=== PATIENT | female | born 1960 | race Caucasian/White ===

== ENCOUNTER 2016-07-16 14:49 | Observation (INO) ==
--- NOTE | 2016-07-16 15:06 | Emergency Department Note ---
Disposition Clinical Impression: Chest pain Qualifiers: Chest pain type: unspecified Qualified Code(s): R07.9 - Chest pain, unspecified Disposition: Admitted As Inpatient Condition: Fair Referrals: Jovani Garcia DO [Primary Care Provider] - Forms: ED Satisfaction Letter Time of Disposition: 16:46 Chest Pain HPI - General Chief Complaint: ED Chest Pain Stated Complaint: chest pain Time Seen by Provider: 07/16/16 15:00 Source: patient, family Limitations: no limitations Vital Signs Reviewed: Yes Nursing Notes Reviewed: Yes - History of Present Illness HPI Narrative: 56-year-old who comes in complaining of chest pain. Patient states she had a episode of chest pain about 2 weeks ago. Today she was at work sitting at her desk and developed chest pain pain lasted about 30-40 minutes. Described as midsternal with a tight heaviness in her chest. Patient denies a history of heart problems she's not had any recent cardiac workup. Risk factors include hypertension and family history. 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 Acidophilus/Pectin, [place] 1 each PO DAILY 07/16/16 07/16/16 [Acidophilus Probiotic Capsule] Levothyroxine [Synthroid] 75 mcg PO 0630 07/16/16 07/16/16 Losartan/HCTZ [Hyzaar 50-12.5 1 each PO DAILY 07/16/16 07/16/16 Tablet] Omeprazole [PriLOSEC] 20 mg PO DAILY 07/16/16 07/16/16 Allergies Allergy/AdvReac Type Severity Reaction Status Date / Time acetaminophen [From Percocet] Allergy Rash Verified 07/16/16 14:59 cefpodoxime [From Vantin] Allergy Rash Verified 07/16/16 14:59 doxycycline Allergy Rash Verified 07/16/16 14:59 naproxen Allergy Unresponsiv Verified 07/16/16 14:59 e nitrofurantoin Allergy Rash Verified 07/16/16 14:59 [From Macrobid] Oxycodone [From Percocet] Allergy Rash Verified 07/16/16 14:59 Penicillins Allergy Rash Verified 07/16/16 14:59 Sulfa (Sulfonamide Allergy Rash Verified 07/16/16 14:59 Antibiotics) sulfamethoxazole Allergy Rash Verified 07/16/16 14:59 [From Bactrim] trimethoprim [From Bactrim] Allergy Rash Verified 07/16/16 14:59 Constitutional: Denies: fever, chills, weakness, weight change Eyes: Denies: eye pain, eye discharge, vision change ENT ED: Denies: ear pain, throat pain, dental pain, hearing loss, epistaxis, congestion, dysphagia Cardiovascular: Reports: chest pain. Denies: palpitations, dyspnea on exertion , edema, syncope Respiratory: Denies: cough, dyspnea, wheezes, hemoptysis, stridor Gastrointestinal: Denies: abdominal pain, nausea, vomiting, diarrhea, constipation, hematemesis, melena, hematochezia Genitourinary: Denies: dysuria, frequency, hematuria, discharge Musculoskeletal: Denies: back pain, neck pain, arthralgia, myalgia Integumentary: Denies: rash, abrasion, lesions Neurological: Denies: headache, weakness, numbness, paresthesias, confusion, abnormal gait, vertigo Psychiatric: Denies: anxiety, depression, suicidal thoughts, homicidal thoughts , auditory hallucinations, visual hallucinations Endocrine: Denies: fatigue Hematological/Lymphatic: Denies: easy bleeding, easy bruising Allergic/Immunologic: Denies: facial swelling, urticaria Chest Pain PMH - Past Medical History Medical history: Reports: GERD, hypertension, thyroid disease Psychiatric history: Reports: no psych history - Social History Smoking Status: Never smoker Alcohol use: Reports: occasionally Drug use: Reports: none Physical Exam - General Limitations: no limitations General appearance: alert, in no apparent distress - Head Head exam: atraumatic, normocephalic, normal inspection - Eye Eye exam: Present: normal appearance, PERRL, EOMI - ENT ENT exam: normal exam, normal oropharynx, mucous membranes moist - Neck Neck exam: Present: normal inspection, full ROM, trachea midline - Chest Chest inspection: Present: normal inspection, symmetric chest wall rise - Respiratory Respiratory exam: Present: normal lung sounds bilaterally - Cardiovascular Cardiovascular exam: Present: regular rate, normal rhythm, normal heart sounds - Abdominal Exam Abdominal exam: Present: soft, Non-Tender. Absent: tenderness, distention, guarding, rebound, rigidity - Extremities Exam Extremities exam: Present: normal inspection, full ROM. Absent: tenderness, pedal edema - Expanded Lower Extremity Exam Neurovascular/Tendon exam: Absent: motor deficit, sensory deficit, tendon deficit Gait: observed and normal - Back Exam Back exam: Present: normal inspection, full ROM. Absent: tenderness - Neurological Exam Neurological exam: Present: alert, oriented X3 - Psychiatric Psychiatric exam: Present: normal affect, normal mood - Skin Skin exam: Present: warm, dry, intact, normal color Course - Reevaluation(s) Reevaluation #1: Patient with multiple risk factors comes in complaining of tightness in her chest lasting for about 20-30 minutes today had an episode a few weeks ago also. Had no recent cardiac workup. Time: 16:44 - Consultations Consultation #1: Discussed with , admit. Time: 16:45 Vital Signs Temperature 97.3 F L 07/16/16 14:50 Pulse Rate 90 07/16/16 14:50 Respiratory Rate 18 07/16/16 14:50 Blood Pressure 167/84 07/16/16 14:50 O2 Sat by Pulse Oximetry 97 07/16/16 14:50 Temperature 97.3 F L 07/16/16 14:50 Pulse Rate 90 07/16/16 14:50 Respiratory Rate 18 07/16/16 14:50 Blood Pressure 167/84 07/16/16 14:50 O2 Sat by Pulse Oximetry 97 07/16/16 15:11 Oxygen Delivery Oxygen Delivery Room Air Chest Pain - Lab Data Lab results reviewed: Yes I reviewed the patient's lab results. Result diagrams: 07/16/16 15:51 07/16/16 15:51 Lab Results 07/16/16 07/16/16 07/16/16 Range/Units 15:51 15:51 15:51 WBC 6.5 (4.3-11.1) K/mcL RBC 4.52 (3.82-4.97) M/mcL Hgb 13.6 (11.5-15.4) g/dL Hct 40.3 (35.3-44.9) % MCV 89.2 (83.0-100.0) fL MCH 30.1 (28.0-33.3) pg MCHC 33.7 (31.6-35.5) g/dL RDW 13.2 (11.5-14.5) % Plt Count 225 (140-400) K/mcL MPV 9.5 (9.4-12.4) fL Immature Gran % 0.5 (0-4) % Seg Neutrophils % 52.8 % Lymphocytes % 34.3 % Monocytes % 6.9 % Eosinophils % 4.7 % Basophils % 0.8 % Neutrophils # 3.5 (1.6-8.9) K/mcL Lymphocytes # 2.2 (0.6-4.6) K/mcL Monocytes # 0.5 (0.0-1.3) K/mcL Eosinophils # 0.3 (0.0-0.6) K/mcL Basophils # 0.1 (0.0-0.2) K/mcL PT 11.3 (9.4-12.1) Seconds INR 1.0 APTT 36.1 H (26.0-36.0) Seconds Sodium (136-145) mEq/L Potassium (3.5-4.5) mEq/L Chloride (98-109) mEq/L Carbon Dioxide (19-29) mEq/L BUN (7-20) mg/dL Creatinine (0.57-1.11) mg/dL Est GFR ( Amer) (> 60) Est GFR (Non-Af Amer) (> 60) BUN/Creatinine Ratio (6-26) Glucose (70-99) mg/dL Calculated Osmolality (280-300) Calcium (8.6-10.8) mg/dL Troponin I (0-0.03) ng/mL B-Natriuretic Peptide < 10 (0-100) pg/mL 07/16/16 07/16/16 Range/Units 15:51 15:51 WBC (4.3-11.1) K/mcL RBC (3.82-4.97) M/mcL Hgb (11.5-15.4) g/dL Hct (35.3-44.9) % MCV (83.0-100.0) fL MCH (28.0-33.3) pg MCHC (31.6-35.5) g/dL RDW (11.5-14.5) % Plt Count (140-400) K/mcL MPV (9.4-12.4) fL Immature Gran % (0-4) % Seg Neutrophils % % Lymphocytes % % Monocytes % % Eosinophils % % Basophils % % Neutrophils # (1.6-8.9) K/mcL Lymphocytes # (0.6-4.6) K/mcL Monocytes # (0.0-1.3) K/mcL Eosinophils # (0.0-0.6) K/mcL Basophils # (0.0-0.2) K/mcL PT (9.4-12.1) Seconds INR APTT (26.0-36.0) Seconds Sodium 142 (136-145) mEq/L Potassium 4.0 (3.5-4.5) mEq/L Chloride 106 (98-109) mEq/L Carbon Dioxide 27 (19-29) mEq/L BUN 9 (7-20) mg/dL Creatinine 0.80 (0.57-1.11) mg/dL Est GFR ( Amer) > 60 (> 60) Est GFR (Non-Af Amer) > 60 (> 60) BUN/Creatinine Ratio 11 (6-26) Glucose 129 H (70-99) mg/dL Calculated Osmolality 294 (280-300) Calcium 10.2 (8.6-10.8) mg/dL Troponin I 0.00 (0-0.03) ng/mL B-Natriuretic Peptide (0-100) pg/mL - Radiology Data Radiology results reviewed: Yes I reviewed the patient's radiology results. Chest X-Ray 07/16/16 15:00 IMPRESSION: 1. No acute cardiopulmonary disease. D/ / Hodan Quiñonez MD / Hodan Quiñonez MD Interpreting Provider: Hodan Quiñonez MD - EKG Data EKG attestation: Yes I reviewed and interpreted this EKG. EKG shows normal: sinus rhythm Rate: normal Rhythm: NSR Interpretation: no acute changes Heart Score - Score History: Moderately Suspicious EKG: Non Specific repolarisation Disturbance Age: 45-65 Risk Factors: 1-2 risk factors Troponin: Less than normal limit HEART Score Total: 4
[2016-07-16] MEDS ORDERED: Aspirin 81 MG TAB.CHEW PO STA (15:07)
[2016-07-16 16:00] LABS: Basophils # 0.1 K/mcL (0.0-0.2); Basophils % 0.8 %; Eosinophils # 0.3 K/mcL (0.0-0.6); Eosinophils % 4.7 %; Hematocrit 40.3 % (35.3-44.9); Hemoglobin 13.6 g/dL (11.5-15.4); Immature Granulocytes % 0.5 % (0-4); Lymphocytes # 2.2 K/mcL (0.6-4.6); Lymphocytes % 34.3 %; Mean Corpuscular HGB Conc 33.7 g/dL (31.6-35.5); Mean Corpuscular Hemoglobin 30.1 pg (28.0-33.3); Mean Corpuscular Volume 89.2 fL (83.0-100.0); Mean Platelet Volume 9.5 fL (9.4-12.4); Monocytes # 0.5 K/mcL (0.0-1.3); Monocytes % 6.9 %; Neutrophils # 3.5 K/mcL (1.6-8.9); Platelet Count 225 K/mcL (140-400); Red Blood Count 4.52 M/mcL (3.82-4.97); Red Cell Distribution Width 13.2 % (11.5-14.5); Segmented Neutrophils % 52.8 %
[2016-07-16 16:07] LABS: Prothrombin Time 11.3 Seconds (9.4-12.1)
[2016-07-16 16:10] LABS: Activated Partial Thrombo Time 36.1 Seconds (26.0-36.0)
[2016-07-16 16:13] LABS: BUN/Creatinine Ratio 11 (6-26); Blood Urea Nitrogen 9 mg/dL (7-20); Calcium 10.2 mg/dL (8.6-10.8); Carbon Dioxide 27 mEq/L (19-29); Chloride 106 mEq/L (98-109); Glucose 129 mg/dL (70-99); Osmolality,Calculated 294 (280-300); Sodium 142 mEq/L (136-145); eGFR For African Americans > 60 (> 60); eGFR For Non-African Americans > 60 (> 60)
[2016-07-16] MEDS ORDERED: Naloxone 0.4 MG/ML INJ IVP PRN (18:10)
[2016-07-16] MEDS ORDERED: *HR* Morphine 2 MG/ML SYRINGE IVP PRN (18:10)
--- NOTE | 2016-07-16 18:20 | Internal Med History&Physical ---
Date of Encounter: 07/16/16 Time of Encounter: 18:16 Assessment and Plan (1) Chest pain Status: Acute Chest pain: Admitted as observation. - cardiac diet. -ASA/BB/Statin - Echocardiogram -Pain control with morphine -We will resume home medication -If echocardiogram is normal then please consider stress test -If echocardiogram is abnormal and his consider cardiology evaluation -Family at bedside. Above plan discussed with the family. -Family verbalize understanding. Family agreed with the above plan. Qualifiers: Chest pain type: unspecified Qualified Code(s): R07.9 - Chest pain, unspecified (2) Hypertension Status: Acute Presently blood pressure is usually well controlled. We will resume the home medications. Qualifiers: Hypertension type: essential hypertension Qualified Code(s): I10 - Essential (primary) hypertension (3) DVT prophylaxis Status: Acute Heparin Medical decision making : this patient has a mild to moderate discomfort worsening cardiac issue in spite of being on appropriate medication Internal Medicine - H&P: HPI Chief complaint: chest pain Admitted From: Emergency Dept Plans for Post Hospital Care: Home History of present illness: PCP: Dr Jose Santos PMH: GERD, hypertension, thyroid disease HPI: Patient has ongoing chest discomfort for more than 2 weeks. It was noted that in the last 48 hours chest pain got worse. Since this morning patient was having continuous, nonradiating, localized, dull aching-sharp, retrosternal chest pain. Pain was getting worse upon respiration. The pain was relieved at rest. Patient has noted that in last 2 weeks her work capacity has significantly deteriorated and she is easily getting fatigued upon minimal exertion. Patient denies palpitation, short of breath, nausea, vomiting, abdominal pain or diarrhea. Her persistent chest pain brought in patient to the emergency department for further evaluation. Workup in the emergency room: Patient underwent basic laboratory workup, chest x -ray, EKG. Are examined this patient in the emergency room. Patient's family is at bedside. Reason for admission: Chest pain to rule out acute coronary syndrome. Family history: Noncontributory Past Med Surg Social Fam HX - Past Medical History Medical history: GERD, hypertension, thyroid disease Psychiatric history: no psych history - Social History Smoking Status: Never smoker Smokeless Tobacco Status: No Alcohol use: occasionally Drug use: none Internal Medicine - H&P: Meds Amlodipine Besylate 2.5 mg PO DAILY 07/16/16 [History] Cholecalciferol (D-3) [Vitamin D] 1,000 unit PO DAILY 07/16/16 [History] Fish Oil/Dha/Epa [Fish Oil 1,200 mg Fish Oil] 1 each PO DAILY 07/16/16 [History] L. Acidophilus/Pectin, [place] [Acidophilus Probiotic Capsule] 1 each PO DAILY [History] Levothyroxine [Synthroid] 75 mcg PO 0630 07/16/16 [History] Losartan/HCTZ [Hyzaar 50-12.5 Tablet] 1 each PO DAILY 07/16/16 [History] Omeprazole [PriLOSEC] 20 mg PO DAILY 07/16/16 [History] Aspirin Enteric Coated [Aspirin EC] 81 mg PO DAILY tablet. 07/17/16 [Rx] Ibuprofen 800 mg PO TID PRN 14 Days 07/17/16 [Rx] Metoprolol [Lopressor] 12.5 mg PO BID tablet 07/17/16 [Rx] Simvastatin [Zocor] 40 mg PO HS tablet 07/17/16 [Rx] Allergies acetaminophen [From Percocet] Allergy (Verified 07/16/16 14:59) Rash cefpodoxime [From Vantin] Allergy (Verified 07/16/16 14:59) Rash doxycycline Allergy (Verified 07/16/16 14:59) Rash naproxen Allergy (Verified 07/16/16 14:59) Unresponsive nitrofurantoin [From Macrobid] Allergy (Verified 07/16/16 14:59) Rash Oxycodone [From Percocet] Allergy (Verified 07/16/16 14:59) Rash Penicillins Allergy (Verified 07/16/16 14:59) Rash Sulfa (Sulfonamide Antibiotics) Allergy (Verified 07/16/16 14:59) Rash sulfamethoxazole [From Bactrim] Allergy (Verified 07/16/16 14:59) Rash trimethoprim [From Bactrim] Allergy (Verified 07/16/16 14:59) Rash All Systems PM: A 10-system review of systems was performed and is negative for pertinent findings except as documented above in the HPI. - Constitutional Constitutional: no chills, no fever(s), no night sweats - EENT Eyes: no change in vision, no discharge, no pain, no photophobia Ears: no ear discharge, no ear pain, no tinnitus Nose, mouth and throat: no dysphagia, no nasal discharge, no neck pain, no sore throat - Cardiovascular Cardiovascular ROS IM: chest pain, lightheadedness, no diaphoresis, no dyspnea, no palpitations, no syncope - Respiratory Respiratory: no cough, no dyspnea, no wheezing, no excessive phlegm production - Gastrointestinal Gastrointestinal: no abdominal pain, no diarrhea, no hematemesis, no hematochezia, no melena, no nausea, no vomiting - Genitourinary Genitourinary: no change in urinary stream, no dysuria, no flank pain, no hematuria - Musculoskeletal Musculoskeletal ROS IM: no numbness, no tingling - Integumentary Integumentary IM: no rash, no unusual bruising - Neurological Neurological ROS: no confusion, no convulsions, no focal weakness, no numbness, no tingling, no tremor(s) - Hematologic/Lymphatic Hematologic/Lymphatic: no easy bruising - Constitutional Vitals: Temp Pulse Resp BP Pulse Ox 97.5 F L 73 16 143/85 96 07/16/16 17:53 07/16/16 17:53 07/16/16 17:53 07/16/16 17:53 07/16/16 17:53 General appearance: Present: A&O X 3, pleasant, no acute distress, answers questions appropriately - Head Head exam: Present: atraumatic, normocephalic - Eye Eye exam: Present: PERRL, conjuntiva pink, sclera anicteric Pupils: Present: PERRL - Neck Neck exam general surgery: Present: supple, trachea midline. Absent: lymphadenopathy - Respiratory Respiratory exam: Present: CTAB. Absent: accessory muscle use, rales, rhonchi, wheezes - Cardiovascular Cardiovascular exam: Present: RRR, +S1, +S2. Absent: diastolic murmur, gallop, rubs, systolic murmur - GI/Abdominal GI/Abdominal exam: Present: normal bowel sounds, soft, no peritoneal signs. Absent: distended, tenderness - Extremities Exam Extremities exam: Present: warm, radial pulses palpable and symetrical. Absent : calf tenderness, cyanotic, pedal edema - Neurological Exam Neurological exam: Present: CN II-XII intact, oriented X3, no focal deficits. Absent: pronater drift, facial droop, speech deficit - Skin Skin exam: Present: dry, intact Internal Med - H&P Results - Labs CBC & Chem 7: 07/17/16 00:26 07/17/16 00:26 Labs: Case discussed with the emergency room physician
[2016-07-16 18:35] LABS: Bilirubin,Urine Negative (Negative); Blood,Urine Negative (Negative); Clarity,Urine Clear (Clear); Color,Urine Yellow (Yellow); Glucose,Urine (UA) Normal (Normal); Ketones,Urine Negative (Negative); Leukocyte Esterase,Urine Small (Negative); Nitrite,Urine Negative (Negative); Protein,Urine Negative (Neg-Trace); Specific Gravity,Urine 1.008 (1.010-1.025); Urobilinogen,Urine Normal (Normal)
[2016-07-16 18:37] LABS: Bacteria,Urine None Seen per hpf (None-Few); Hyaline Casts,Urine None Seen per lpf (None-Few); RBC,Urine 0-3 per hpf (0-3); Squamous Epithelial Cell,Urine Many per lpf (None-Few)
[2016-07-17 00:37] LABS: Basophils # 0.1 K/mcL (0.0-0.2); Basophils % 0.7 %; Eosinophils # 0.4 K/mcL (0.0-0.6); Eosinophils % 5.1 %; Hematocrit 38.7 % (35.3-44.9); Immature Granulocytes % 0.3 % (0-4); Lymphocytes # 2.8 K/mcL (0.6-4.6); Lymphocytes % 38.1 %; Mean Corpuscular HGB Conc 33.6 g/dL (31.6-35.5); Mean Corpuscular Hemoglobin 30.3 pg (28.0-33.3); Mean Corpuscular Volume 90.2 fL (83.0-100.0); Mean Platelet Volume 9.6 fL (9.4-12.4); Monocytes # 0.5 K/mcL (0.0-1.3); Monocytes % 7.3 %; Neutrophils # 3.6 K/mcL (1.6-8.9); Platelet Count 248 K/mcL (140-400); Red Blood Count 4.29 M/mcL (3.82-4.97); Red Cell Distribution Width 13.2 % (11.5-14.5); Segmented Neutrophils % 48.5 %
[2016-07-17 00:55] LABS: Alanine Aminotransferase 54 Units/L (0-55); Albumin 3.8 g/dL (3.5-5.0); Albumin/Globulin Ratio 1.2 (1.1-2.2); Alkaline Phosphatase 95 Units/L (38-126); Aspartate Amino Transferase 33 Units/L (5-34); BUN/Creatinine Ratio 13 (6-26); Bilirubin,Total 0.4 mg/dL (0.2-1.2); Blood Urea Nitrogen 10 mg/dL (7-20); Calcium 9.4 mg/dL (8.6-10.8); Carbon Dioxide 26 mEq/L (19-29); Chloride 108 mEq/L (98-109); Cholesterol 195 mg/dL (< 200); Globulin 3.2 g/dL (2.4-3.5); Glucose 109 mg/dL (70-99); HDL Cholesterol 39 mg/dL (40-59); LDL Cholesterol,Calculated 96 mg/dL (0-99); Osmolality,Calculated 296 (280-300); Phosphorous 3.4 mg/dL (2.3-4.7); Sodium 143 mEq/L (136-145); Triglycerides 299 mg/dL (< 150); eGFR For African Americans > 60 (> 60); eGFR For Non-African Americans > 60 (> 60)
[2016-07-17] MEDS ORDERED: *HR* Heparin 5,000 UNIT/ML VIAL SQ SCH (06:00)
--- NOTE | 2016-07-17 08:59 | ECHO - Doppler Report ---
Echocardiogram Name: Mayra Hyatt Date of Study: 07/17/2016 Date: 1960 Ht: 61.0 in Medical Record#: [id number] Age: 56 Wt: 200.0 lb Gender: Female BSA: 1.89 Order #: [id number] Location: [facility] Room #: 3B46 Reading Physician: Michael Garzon MD, [facility] Sheetmetal Worker: Zayra Gary Ordering Physician: Yossi Newton MD Primary Physician: Jovani Garcia DO Indications: Chest pain Impressions: LVEF 55-60%. No pulmonary hypertension. Normal left ventricular diastolic function. No significant valvular dysfunction. Left Ventricular Wall Motion: Rest Echo Findings All wall segments showed normal motion. Findings: Study Quality * Technically adequate exam. Right Ventricle * Normal right ventricular structure and function. Left Atrium * Normal left atrial size. Right Atrium * Normal right atrial size. Mitral Valve * Normal mitral valve structure and function. Aorta * Normally sized aortic root. Pericardium * The pericardium appears normal. Tricuspid Valve * Trace tricuspid regurgitation. * No tricuspid stenosis. * Estimated RVSP is 17 mmHg. * Estimated RA pressure is 3-5 mmHg. * No pulmonary hypertension. Pulmonic Valve * No pulmonic stenosis. * Mild pulmonic regurgitation. Left Ventricle * LVEF 55-60%. * Normal left ventricular diastolic function. * Normal LV chamber size, wall thickness and function. * No segmental dysfunction. Aortic Valve * Trace aortic regurgitation. * No aortic stenosis. * Aortic valve not well visualized. ECG Findings * Normal sinus rhythm. Interatrial Septum * Interatrial septum not well evaluated. IVC * Normal IVC dimensions and inspiratory collapse. History Hypertension Family History of CAD Measurements: BP: 105/ 61 2D Normal Values RVIDd: 2.80 cm <2.7 cm IVSd: .90 cm 0.6 - 1.0 cm LVIDd: 4.40 cm 3.7 - 5.6 cm LVPWd: 1.00 cm 0.6 - 1.1 cm LVIDs: 3.00 cm 1.5 - 3.6 cm AO: 2.40 cm < 4.0 cm LA: 3.30 cm 2.0 - 4.0cm %FS: 31.80 cm >25 % LA volume: 44 Mitral Valve Peak E:.73 m/sec Peak A:.60 m/sec E/A Ratio:1.2 Peak E' Lat Kumar:14 cm/s Peak E' Med Kumar:8.69 cm/s E/E' Lat Ratio:5.2 E/E' Med Ratio:8.4 Tricuspid Valve TV Regurg Peak Grad: 17.00mmHg TV Regurg Peak Kumar: 2.06m/sec Updated by Michael Garzon MD, [facility] on 07/17/2016 8:54:49 AM electronically signed on 07/17/2016 8:55:34 AM with status of Final Wall Motion Nelson: 1=Normal, 2=Hypokinesis, 3=Akinesis, 4=Dyskinesis, 5=Aneurysmal, 6=Hyperkinetic, X=Not Visualized (Blank)=Missing
[2016-07-17] MEDS ORDERED: amLODIPine 5 MG TABLET PO SCH (09:00)
[2016-07-17] MEDS ORDERED: Aspirin Enteric Coated 81 MG Tablet PO SCH (09:00)
[2016-07-17] MEDS ORDERED: Losartan/HCTZ 50-12.5 TABLET PO SCH (09:00)
[2016-07-17 10:45] VITALS: BP 162/94
--- NOTE | 2016-07-17 11:25 | Discharge Summary ---
<SamiaAlbaro Cesar - Last Filed: 07/17/16 12:27> Date of Encounter: 07/17/16 Time of Encounter: 11:23 - Discharge Diagnosis (1) Xyphoidalgia Priority: Primary Status: Acute (2) Chest pain Priority: Primary Status: Acute Qualifiers: Chest pain type: unspecified Qualified Code(s): R07.9 - Chest pain, unspecified (3) Hypertension Priority: Secondary Status: Acute Comments: mild elevation. She did not have her blood pressure medication until 1033 this AM as she was NPO. Qualifiers: Hypertension type: essential hypertension Qualified Code(s): I10 - Essential (primary) hypertension - Discharge Medications Prescriptions: Ibuprofen 800 mg PO TID PRN 14 Days PRN Reason: Pain Home Medications: Amlodipine Besylate 2.5 mg PO DAILY 07/16/16 [History] Cholecalciferol (D-3) [Vitamin D] 1,000 unit PO DAILY 07/16/16 [History] Fish Oil/Dha/Epa [Fish Oil 1,200 mg Fish Oil] 1 each PO DAILY 07/16/16 [History] L. Acidophilus/Pectin, [place] [Acidophilus Probiotic Capsule] 1 each PO DAILY [History] Levothyroxine [Synthroid] 75 mcg PO 0630 07/16/16 [History] Losartan/HCTZ [Hyzaar 50-12.5 Tablet] 1 each PO DAILY 07/16/16 [History] Omeprazole [PriLOSEC] 20 mg PO DAILY 07/16/16 [History] Aspirin Enteric Coated [Aspirin EC] 81 mg PO DAILY tablet. 07/17/16 [Rx] Ibuprofen 800 mg PO TID PRN 14 Days 07/17/16 [Rx] Metoprolol [Lopressor] 12.5 mg PO BID tablet 07/17/16 [Rx] Simvastatin [Zocor] 40 mg PO HS tablet 07/17/16 [Rx] Allergies/Adverse Reactions: Allergies acetaminophen [From Percocet] Allergy (Verified 07/16/16 14:59) Rash cefpodoxime [From Vantin] Allergy (Verified 07/16/16 14:59) Rash doxycycline Allergy (Verified 07/16/16 14:59) Rash naproxen Allergy (Verified 07/16/16 14:59) Unresponsive nitrofurantoin [From Macrobid] Allergy (Verified 07/16/16 14:59) Rash Oxycodone [From Percocet] Allergy (Verified 07/16/16 14:59) Rash Penicillins Allergy (Verified 07/16/16 14:59) Rash Sulfa (Sulfonamide Antibiotics) Allergy (Verified 07/16/16 14:59) Rash sulfamethoxazole [From Bactrim] Allergy (Verified 07/16/16 14:59) Rash trimethoprim [From Bactrim] Allergy (Verified 07/16/16 14:59) Rash Procedures/tests Complete & Pending: Procedures Performed prior 72 hours Category Date Time Status EV echocardiogram Routine Y 07/17/16 18:13 Completed Date of admission: 07/16/16 16:55 Primary care physician: Jovani Garcia Discharging clinician: Albaro Gracia Anticipated date of discharge: 07/17/16 - Patient Status Disposition: Home, Self-Care Condition: Fair Overall status at discharge: patient is back to baseline - Discharge Instructions Instructions: Ibuprofen (By mouth), Angina (DC), Heart Healthy Diet (GEN), Chronic Hypertension (DC) Follow Up With: Jovani Garcia DO [Primary Care Provider] - - Diet and Activity Activity: increase activity as tolerated Diet: low fat, low cholesterol, low salt diet Hospital course: Ms. Hyatt is a 56 year old female with pmh of HTN, who was admitted to [facility] for chest pain. EKG, TTE and troponins were all normal. Additionally she has reproducible pain with palpation over the xyphoid. no major abnormality with her labs or vitals this AM. We will discharge her home to follow up with her PCP. she will discuss possible outpatient stress testing with her PCP. Patietn voices back her understanding and agreement to the above plan. - Time Spent with Patient Total time spent providing and/or coordinating discharge services: Greater than 30 minutes (approximately 35 minutes) - Constitutional Vitals: Temp Pulse Resp BP Pulse Ox 97.5 F L 75 16 162/94 95 07/17/16 10:44 07/17/16 10:44 07/17/16 10:44 07/17/16 10:44 07/17/16 10:44 General appearance: Present: A&O X 3, pleasant, no acute distress, answers questions appropriately - Head Head exam: Present: atraumatic, normocephalic - Eye Eye exam: Present: PERRL, conjuntiva pink, sclera anicteric Pupils: Present: PERRL - Neck Neck exam general surgery: Present: supple, trachea midline. Absent: lymphadenopathy - Respiratory Respiratory exam: Present: CTAB. Absent: accessory muscle use, rales, rhonchi, wheezes - Cardiovascular Cardiovascular exam: Present: RRR, +S1, +S2. Absent: diastolic murmur, gallop, rubs, systolic murmur - GI/Abdominal GI/Abdominal exam: Present: normal bowel sounds, soft, no peritoneal signs. Absent: distended, tenderness - Extremities Exam Extremities exam: Present: warm, radial pulses palpable and symetrical. Absent : calf tenderness, cyanotic, pedal edema - Skin Skin exam: Present: dry, intact <Owen Leary - Last Filed: 07/17/16 16:24> Date of Encounter: 07/17/16 Procedures/tests Complete & Pending: Procedures Performed prior 72 hours Category Date Time Status EV echocardiogram Routine Y 07/17/16 18:13 Completed Date of admission: 07/16/16 16:55 Primary care physician: Jovani Garcia [facility] course: Ms. Hyatt is a 56 year old female - Time Spent with Patient Total time spent providing and/or coordinating discharge services: - Constitutional Vitals: Temp Pulse Resp BP Pulse Ox 97.5 F L 75 16 162/94 95 07/17/16 10:44 07/17/16 10:44 07/17/16 10:44 07/17/16 10:44 07/17/16 10:44 - Attending Attestation I examined this patient and my medical decision-making was reviewed with the RIVET DRIVER/PA/Advanced Practice Nurse/Resident Physician. I agree with the documented findings, disposition and treatment plan as described except to the extent set forth below. Chest pain, ACS was ruled out. Echo done. Outpatient follow up.
--- NOTE | 2016-07-19 07:00 | Electrocardiograph Report ---
[place] [id number] Test Date: 2016-07-16 Pat Name: Mayra Hyatt Department: 103 Room: 3B46 Gender: F Tube Dispatcher: : 1960 Requested By: Emmanuel Goel Order Number: [id number] Reading MD: Michael Garzon MD Measurements Intervals [place] Rate: 82 P: 54 MD: 169 QRS: 25 QRSD: 86 T: 50 QT: 357 QTc: 395 Interpretive Statements SINUS RHYTHM LOW QRS VOLTAGE IN PRECORDIAL LEADS Electronically Signed On 07-19-2016 6:59:13 EST by Michael Garzon MD
== END 2016-07-17 14:03 | disposition home or self-care (01) ==
LOC: EMEROO 14:49 → 3BNU 14:49
PROVIDERS: ADMIT Internal Medicine; ATTEND Nurse Practitioner Family